=== PATIENT | male | born 1955 | race Caucasian/White ===

== ENCOUNTER 2025-02-15 10:17 | Emergency (ER) | payer MEDICARE ==
--- NOTE | 2025-02-15 11:08 | XR ---
EXAMINATION TYPE: XR chest 2V DATE OF EXAM: 02/15/2025 11:04 AM COMPARISON: None. CLINICAL INDICATION: Male, 69 years old with history of Weakness: Shortness of breath TECHNIQUE: XR chest 2V views of the chest are obtained. FINDINGS: Scattered senescent parenchymal changes noted. Hyperinflation compatible with COPD. No evidence for infiltrate. No evidence for atelectasis. Heart size is stable. Mediastinal structures are stable and grossly unremarkable. No evidence for hilar prominence. Degenerative changes dorsal spine. IMPRESSION: 1. No evidence for acute pulmonary disease. [facility], , 02/15/2025 11:06 AM
--- NOTE | 2025-02-15 11:09 | ED ---
General Adult HPI - General Chief complaint: Weakness Stated complaint: Fall-Weakness Time Seen by Provider: 02/15/25 11:00 Source: patient Mode of arrival: ambulatory Limitations: no limitations - History of Present Illness Initial comments: 69-year-old male presenting to the emergency department complaints of bilateral lower extremity weakness. Patient states that he went to use the bathroom and was 700 this morning went back to bed. He woke up for the morning at 800 where again he stood up to go use the bathroom when he felt extremely weak in his bilateral lower extremities and reports that they felt "cold ". He states that he had severe difficulty walking into the bathroom causing him to fall onto the ground. He states that this episode the symptoms have significantly improved he is able to ambulate with no pain however still endorses bilateral lower extremity paresthesias. Patient denies loss of bladder or bowel control, urinary retention, saddle anesthesias. He denies flank pain, lower back pain, hematuria, dysuria, abdominal pain, difficulty breathing, headaches, chest pain or heart palpitations. States that he has a known history of degeneration of the lower back however has not followed with project controls specialist in 5+ years. Denies previous surgeries of his lower back however he has received injections in the past. - Related Data Previous Rx's Medication Instructions Recorded predniSONE 50 mg PO DAILY #5 tab 02/15/25 Allergies Allergy/AdvReac Type Severity Reaction Status Date / Time gabapentin Allergy Confusion Verified 02/15/25 10:38 Penicillins Allergy Anaphylaxis Verified 02/15/25 10:38 Review of Systems ROS Statement: Those systems with pertinent positive or pertinent negative responses have been documented in the HPI. ROS Other: All systems not noted in ROS Statement are negative. Past Medical History Smoking Status: Never smoker Past Alcohol Use History: None Reported Past Drug Use History: None Reported General Exam Limitations: no limitations General appearance: alert, in no apparent distress Neck exam: Present: normal inspection. Absent: tenderness, meningismus, lymphadenopathy Respiratory exam: Present: normal lung sounds bilaterally. Absent: respiratory distress, wheezes, rales, rhonchi, stridor Cardiovascular Exam: Present: regular rate, normal rhythm, normal heart sounds. Absent: systolic murmur, diastolic murmur, rubs, gallop, clicks GI/Abdominal exam: Present: soft, normal bowel sounds. Absent: distended, tenderness, guarding, rebound, rigid Extremities exam: Present: normal inspection, full ROM, normal capillary refill. Absent: tenderness, pedal edema, joint swelling, calf tenderness Back exam: Present: normal inspection Neurological exam: Present: alert, oriented X3, CN II-XII intact Course Vital Signs 02/15/25 02/15/25 10:31 13:04 Temperature 97.6 F 97.9 F Pulse Rate 47 L 48 L Respiratory 14 18 Rate Blood Pressure 154/75 145/76 O2 Sat by Pulse 96 99 Oximetry Medical Decision Making - Medical Decision Making Was pt. sent in by a medical professional or institution (, PA, NEURO INTENSIVIST PHYSICIAN, urgent care, hospital, or custodial...) When possible be specific @ -No Did you speak to anyone other than the patient for history (EMS, parent, family, police, friend...)? What history was obtained from this source @ -No Did you review nursing and triage notes (agree or disagree)? Why? @ -I reviewed and agree with nursing and triage notes Were old charts reviewed (outside hosp., previous admission, EMS record, old EKG, old radiological studies, urgent care reports/EKG's, custodial records)? Report findings @ -No old charts were reviewed Differential Diagnosis (chest pain, altered mental status, abdominal pain women, abdominal pain men, vaginal bleeding, weakness, fever, dyspnea, syncope, headache, dizziness, GI bleed, back pain, seizure, CVA, palpatations, mental health, musculoskeletal)? @ -Differential Weakness: Hypoglycemia, shock, sepsis, hyponatremia, anemia, infection, NV, ETOH, adverse medicine reaction, overdose, stroke, this is not meant to be an all-inclusive list. EKG interpreted by me (3pts min.). @ -Completed at 1045 sinus bradycardia with ventricular to 44, HI interval 150, QRS 113, QT 441, QTc 390. X-rays interpreted by me (1pt min.). @ -Chest x-ray no acute cardiopulmonary process CT interpreted by me (1pt min.). @ -CT of the lumbar spine without contrast reveals severe degeneration of the lumbar spine with moderate to severe spinal canal stenosis with severe bilateral neural foraminal stenosis U/S interpreted by me (1pt. min.). @ -None done What testing was considered but not performed or refused? (CT, X-rays, U/S, labs)? Why? @ -None What meds were considered but not given or refused? Why? @ -None Did you discuss the management of the patient with other professionals (professionals i.e. , PA, NEURO INTENSIVIST PHYSICIAN, lab, RT, psych nurse, social media intern, human resources operations specialist, teacher, chief legal officer, case resolution specialist)? Give summary @ -No Was smoking cessation discussed for >3mins.? @ -No Was critical care preformed (if so, how long)? @ -No Were there social determinants of health that impacted care today? How? (Ho melessness, low income, unemployed, alcoholism, drug addiction, transportation, low edu. Level, literacy, decrease access to med. care, fci, rehab)? @ -No Was there de-escalation of care discussed even if they declined (Discuss DNR or withdrawal of care, Hospice)? DNR status @ -No What co-morbidities impacted this encounter? (DM, HTN, Smoking, COPD, CAD, Cancer, CVA, ARF, Chemo, Hep., AIDS, mental health diagnosis, sleep apnea, morbid obesity)? @ -None Was patient admitted / discharged? Hospital course, mention meds given and route, prescriptions, significant lab abnormalities, going to OR and other pertinent info. @ -Discharge. 69-year-old male presenting with bilateral extremity weakness. Overall patient is well appearing on examination but in no signs of distress. Patient has full sensation and strength of bilateral lower extremities. EKG is in sinus rhythm. Laboratory testing including CBC, CMP and troponin is unremarkable. Chest x-ray no acute process. CT of the lumbar spine reveals severe degeneration with stenosis. Personally observed the patient ambulate wi th no difficulties. Patient at this time is not exhibiting red flag findings concerning for cauda equina however concern for lumbar canal stenosis. Patient will be provided with high-dose Solu-Medrol IM injection and short burst of steroids, prednisone, for 5 days. Recommend that patient follow-up with provided orthopedic allergy specialist for further evaluation. Return parameters have been discussed. Case has been discussed with my attending Dr. Vo Undiagnosed new problem with uncertain prognosis? @ -No Drug Therapy requiring intensive monitoring for toxicity (Heparin, Nitro, Insulin, Cardizem)? @ -No Were any procedures done? @ -No Diagnosis/symptom? @ -Lumbar radiculopathy Acute, or Chronic, or Acute on Chronic? @ -Acute Uncomplicated (without systemic symptoms) or Complicated (systemic symptoms)? @ -uncomplicated Side effects of treatment? @ -No Exacerbation, Progression, or Severe Exacerbation? @ -No Poses a threat to life or bodily function? How? (Chest pain, USA, NV, pneumonia, PE, COPD, DKA, ARF, appy, cholecystitis, CVA, Diverticulitis, Homicidal, Suicida l, threat to staff... and all critical care pts) @ -No - Lab Data Result diagrams: 02/15/25 10:49 02/15/25 10:49 Lab Results 02/15/25 02/15/25 02/15/25 Range/Units 10:49 10:49 10:49 WBC 6.32 (4.50-10.00) 10*3/uL RBC 4.63 (4.40-5.60) 10*6/uL Hgb 13.5 (13.0-17.0) g/dL Hct 40.5 (39.6-50.0) % MCV 87.5 (80.0-97.0) fL MCH 29.2 (27.0-32.0) pg MCHC 33.3 (32.0-37.0) g/dL Plt Count 258 (140-440) 10*3/uL MPV 9.0 L (9.5-12.2) fL Immature Gran % (Auto) 0.3 % Neutrophils % 54.9 % Lymphocytes % 32.0 % Monocytes % 7.4 % Eosinophils % 4.6 % Basophils % 0.8 % Immature Gran # 0.02 (0.00-0.04) 10*3/uL Neutrophils # 3.47 (1.80-7.70) 10*3/uL Lymphocytes # 2.02 (0.90-5.00) 10*3/uL Monocytes # 0.47 (0.20-1.00) 10*3/uL Eosinophils # 0.29 (0.04-0.35) 10*3/uL Basophils # 0.05 (0.00-0.10) 10*3/uL PT 10.6 (10.0-12.5) sec INR 1.0 (<1.2) APTT 21.0 L (22.0-30.0) sec Sodium 138 (137-145) mmol/L Potassium 4.2 (3.5-5.1) mmol/L Chloride 109 H (98-107) mmol/L Carbon Dioxide 23 (22-30) mmol/L Anion Gap 6 mmol/L BUN 19 (9-20) mg/dL Creatinine 0.93 (0.66-1.25) mg/dL Est GFR (CKD-EPI)AfAm >90 (>60 ml/min/1.73 sqM) Est GFR (CKD-EPI)NonAf 84 (>60 ml/min/1.73 sqM) Glucose 134 H (74-99) mg/dL Calcium 9.4 (8.4-10.2) mg/dL Total Bilirubin 0.5 (0.2-1.3) mg/dL AST 23 (17-59) U/L ALT 21 (4-49) U/L Alkaline Phosphatase 53 (38-126) U/L Troponin I (0.000-0.034) ng/mL Total Protein 6.1 L (6.3-8.2) g/dL Albumin 3.8 (3.5-5.0) g/dL 02/15/25 Range/Units 10:49 WBC (4.50-10.00) 10*3/uL RBC (4.40-5.60) 10*6/uL Hgb (13.0-17.0) g/dL Hct (39.6-50.0) % MCV (80.0-97.0) fL MCH (27.0-32.0) pg MCHC (32.0-37.0) g/dL Plt Count (140-440) 10*3/uL MPV (9.5-12.2) fL Immature Gran % (Auto) % Neutrophils % % Lymphocytes % % Monocytes % % Eosinophils % % Basophils % % Immature Gran # (0.00-0.04) 10*3/uL Neutrophils # (1.80-7.70) 10*3/uL Lymphocytes # (0.90-5.00) 10*3/uL Monocytes # (0.20-1.00) 10*3/uL Eosinophils # (0.04-0.35) 10*3/uL Basophils # (0.00-0.10) 10*3/uL PT (10.0-12.5) sec INR (<1.2) APTT (22.0-30.0) sec Sodium (137-145) mmol/L Potassium (3.5-5.1) mmol/L Chloride (98-107) mmol/L Carbon Dioxide (22-30) mmol/L Anion Gap mmol/L BUN (9-20) mg/dL Creatinine (0.66-1.25) mg/dL Est GFR (CKD-EPI)AfAm (>60 ml/min/1.73 sqM) Est GFR (CKD-EPI)NonAf (>60 ml/min/1.73 sqM) Glucose (74-99) mg/dL Calcium (8.4-10.2) mg/dL Total Bilirubin (0.2-1.3) mg/dL AST (17-59) U/L ALT (4-49) U/L Alkaline Phosphatase (38-126) U/L Troponin I <0.012 (0.000-0.034) ng/mL Total Protein (6.3-8.2) g/dL Albumin (3.5-5.0) g/dL Disposition Clinical Impression: Lumbar radiculopathy Disposition: HOME SELF-CARE Condition: Stable Instructions (If sedation given, give patient instructions): Lumbar Radiculopathy (ED) Additional Instructions: Please return to the Emergency Department if symptoms worsen or any other concerns. Prescriptions: predniSONE 50 mg PO DAILY #5 tab Is patient prescribed a controlled substance at d/c from ED?: No Referrals: Serafin Segovia DO [Primary Care Provider] - 1-2 days Rahat Francois DO [Doctor of Osteopathic Medicine] - 1-2 days Sea Marks DO [Doctor of Osteopathic Medicine] - 1-2 days Time of Disposition: 12:23
[2025-02-15 11:15] LABS: Basophils # (A) 0.05 10*3/uL (0.00-0.10); Basophils % (A) 0.8 %; Eosinophils # (A) 0.29 10*3/uL (0.04-0.35); Eosinophils % (A) 4.6 %; HCT 40.5 % (39.6-50.0); HGB 13.5 g/dL (13.0-17.0); Lymphocytes # (A) 2.02 10*3/uL (0.90-5.00); MCH 29.2 pg (27.0-32.0); MCHC 33.3 g/dL (32.0-37.0); MCV 87.5 fL (80.0-97.0); Monocytes # (A) 0.47 10*3/uL (0.20-1.00); Monocytes % (A) 7.4 %; Neutrophils # (A) 3.47 10*3/uL (1.80-7.70); Neutrophils % (A) 54.9 %; Platelet Count 258 10*3/uL (140-440); RBC 4.63 10*6/uL (4.40-5.60); RDW 13.9 % (11.5-14.5); WBC 6.32 10*3/uL (4.50-10.00)
[2025-02-15 11:35] LABS: ALT 21 U/L (4-49); AST 23 U/L (17-59); African American GFR (CKD) >90 (>60 ml/min/1.73 sqM); Albumin 3.8 g/dL (3.5-5.0); Alkaline Phosphatase 53 U/L (38-126); Anion Gap 6 mmol/L; Blood Urea Nitrogen 19 mg/dL (9-20); Calcium 9.4 mg/dL (8.4-10.2); Carbon Dioxide 23 mmol/L (22-30); Chloride 109 mmol/L (98-107); Glucose 134 mg/dL (74-99); Non-African American GFR(CKD) 84 (>60 ml/min/1.73 sqM); Potassium 4.2 mmol/L (3.5-5.1); Sodium 138 mmol/L (137-145); Total Bilirubin 0.5 mg/dL (0.2-1.3); Total Protein 6.1 g/dL (6.3-8.2)
[2025-02-15 11:40] LABS: Prothrombin Time 10.6 sec (10.0-12.5)
--- NOTE | 2025-02-15 11:46 | CT ---
EXAMINATION TYPE: CT lumbar spine wo con DATE OF EXAM: 02/15/2025 11:33 AM COMPARISON: CT 04/11/2011. CLINICAL INDICATION: Male, 69 years old with history of bilateral LE weakness; PHH, bilateral LE weak ness TECHNIQUE: Multiple axial images were obtained from the midportion of T11 through the sacroiliac ryan nts. Soft tissue and bone windows in coronal and sagittal planes were obtained and reviewed. 3-D ref ormats of the bones were created on a separate workstation and submitted for review. Contrast used: mL of , (None, if empty). Oral contrast used: (None, if empty). CT DLP: 896.7 mGycm, Automated exposure control for dose reduction was used. FINDINGS: Alignment: There are 5 lumbar type vertebral bodies within grade 2 anterolisthesis of L4-L5 alignment . Bone: Moderate to severe degeneration changes of the spine with grade 2 anterolisthesis of L4 and L5 with b ilateral spondylolysis. Scattered osteophytes and Schmorl's nodes suspected disc phenomenon and facet joint arthropathy present. Discs: T12-L1: Facet joint arthropathy and disc bulging without significant spinal canal stenosis or neural foraminal stenosis. L1-L2: Facet joint arthropathy and disc bulging without significant spinal canal stenosis or neural f oraminal stenosis. L2-L3: Facet joint arthropathy and disc bulging without significant spinal canal stenosis or neural f oraminal stenosis. L3-L4: Facet joint arthropathy and disc bulging result in mild spinal canal stenosis and moderate rig ht and mild left neural foraminal stenosis. L4-L5: Anterolisthesis with disc uncovering and moderate to severe spinal canal stenosis. Severe bila teral neural foraminal stenosis. L5-S1: Facet joint arthropathy and disc bulging result in mild spinal canal stenosis and moderate to severe bilateral neural foraminal stenosis. Other: None IMPRESSION: 1. No evidence for acute fracture. 2. 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 3. 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 Moderate to severe spinal maria e l stenosis also thought to be present at this level. Additionally there is severe bilateral neural fo raminal stenosis. Consider MRI for further evaluation. [facility], , 02/15/2025 11:44 AM
[2025-02-15] MEDS: methylPREDNISolone SOD SUCCI 125 MG/2 ML VIAL IV STA (12:27)
[2025-02-15] MEDS: methylPREDNISolone SOD SUCCI 125 MG/2 ML VIAL IM ONE (13:00)
[2025-02-15 13:05] VITALS: BP 145/76; PULSE 48; RESP 18; TEMP 97.9
== END 2025-02-15 13:05 | disposition home or self-care (01) ==
LOC: EC 10:17
DX: M54.16 Radiculopathy, lumbar region (principal); Z88.0 Allergy status to penicillin; Z88.8 Allergy status to other drugs, medicaments and biological substances; W18.30XA Fall on same level, unspecified, initial encounter
CPT/HCPCS: 36415; 93005; 80053; 84484; 85025; 85610; 85730; 71046; 72131; 99285; 96372; J2919